=== PATIENT | female | born 1960 | race Caucasian/White ===

== ENCOUNTER 2023-06-08 17:36 | Emergency (ER) | payer MEDICARE, OTHER, SELFPAY ==
[2023-06-08 17:36] VITALS: BMI 42.3
--- NOTE | 2023-06-08 17:37 | XRR_ITS ---
PROCEDURE INFORMATION: Exam: XR Chest Exam date and time: 06/08/2023 5:49 PM Age: 63 years old Clinical indication: Pain; Chest pressure; Additional info: Dyspnea/cough TECHNIQUE: Imaging protocol: Radiologic exam of the chest. Views: 1 view. COMPARISON: No relevant prior studies available. FINDINGS: Lungs: Unremarkable. No consolidation. Pleural spaces: Unremarkable. No pleural effusion. No pneumothorax. Heart/Mediastinum: Unremarkable. No cardiomegaly. Bones/joints: Unremarkable. XR/XR chest 1V portable [id number] IMPRESSION: No acute findings.
--- NOTE | 2023-06-08 17:38 | ED_ITS ---
Documented by User: Khai Chu DO 06/09/23 07:04 HPI - Chest Pain 2 General: Chief Complaint: Chest Pain Stated Complaint: chest pain Time Seen by Provider: 06/08/23 17:37 Source: patient Mode of arrival: EMS History of Present Illness: 63-year-old female presents emergency ro om with complaint of chest discomfort that began around 4:00 today. Earlier today she noticed her blood pressure is high she ended up taking her clonidine and went down to lay down to take a nap when she woke up she felt odd did some chest discomfort numbness and tingling in her face felt a sensation of swelling in her lips. 911 was called that she was given nitro x 3 4 baby aspirin she is given Zofran and morphine in route she has no chest pain on arrival here she is mildly hyperventilating when initially seen. She denies any abdominal pain no vomiting diarrhea fever sweats chills or productive cough recently. She has no known history of coronary disease she states she has a valve that they are monitoring by echocardiogram but has not had any stress test or angiograms previously.. We do not have any old records regarding this at our facility. MD complaint: chest pain Onset (ago): hour(s) Timing of current episode: episodic Prior episodes: Yes Onset: during rest Pain location: substernal and left chest Pain radiation: back and neck Severity: moderate Quality: aching and heaviness Relieving factors: nitroglycerin Exacerbating factors: nothing Associated symptoms: Reports sense of impending doom; Deny abdominal pain, diaphoresis, dyspnea, fever(s), leg edema, nausea, palpitations, syncope or vomiting Treatment prior to arrival: aspirin, nitroglycerin and oxygen Review of Systems 2 Const: Denies: fever(s), chills or diaphoresis Card: Reports: chest pain; Denies: palpitations or syncope Resp: Denies: dyspnea GI: Denies: abdominal pain, nausea or vomiting : Denies: dysuria, urinary frequency or urinary urgency Musc: Denies: neck pain or back pain Skin/Breast: Denies: rash Physical Exam 2 Const: COMMON NORMALS: no acute distress GENERAL APPEARANCE: cooperative and comfortable ORIENTATION/CONSCIOUSNESS: Yes awake, Yes oriented to person, Yes oriented to place and Yes oriented to time HENMT: COMMON NORMALS: normocephalic, atraumatic and hearing grossly normal bilaterally HEAD & SCALP: normocephalic and atraumatic Resp: COMMON NORMALS: normal respiratory effort, No retractions, No use of accessory muscles and clear to auscultation bilaterally AUSCULTATION: clear to auscultation bilaterally Cardio: COMMON NORMALS: regular rate, regular rhythm and No murmurs present (Cardio) RATE: regular rate RHYTHM: regular rhythm GI: COMMON NORMALS: Soft to palpation and No hepatosplenomegaly present A USCULTATION: Yes normoactive bowel sounds PALPATION: Yes Soft to palpation, No Tenderness to palpation present (GI), No Guarding due to palpation present (GI) and Yes No hepatosplenomegaly present Extremity: COMMON NORMALS: normal to inspection, capillary refill normal, no clubbing, cyanosis or edema, no calf tenderness and no pedal edema Neuro: SENSORIUM/ORIENTATION: Yes oriented to person, Yes oriented to place and Yes oriented to time Skin: COMMON NORMALS: no rashes or lesions noted GENERAL SKIN EXAM: no rashes or lesions noted Course 2 Vital Signs: Vital signs: Vital Signs Temperature 98.0 F 06/08/23 17:39 Pulse Rate 57 L 06/08/23 18:54 Respiratory Rate 16 06/08/23 17:39 Blood Pressure 157/84 06/08/23 18:54 Pulse Oximetry 97 06/08/23 18:54 Oxygen Delivery Me thod Room Air 06/08/23 18:54 MDM - Chest Pain Medical Decision Making Care signed out to Dr. Dwyer at change of shift. See final notes for diagnosis and disposition. Lab Data 06/08/23 18:00 06/08/23 18:00 Radiology Impressions Chest X-Ray 06/08/23 17:37 IMPRESSION: No acute findings. Laboratory Results WBC 8.42 10^3/uL (3.29-11.43) 06/08/23 18:00 RBC 3.35 10^6/uL (3.85-5.65) L 06/08/23 18:00 Hgb 10.60 g/dL (11.27-16.99) L 06/08/23 18:00 Hct 33.3 % (36-47) L 06/08/23 18:00 MCV 99.4 fl (85-98) H 06/08/23 18:00 MCH 31.6 pg (27-33) 06/08/23 18:00 MCHC 31.8 g/dL (30-55) 06/08/23 18:00 RDW 12.9 % (12.1-15.1) 06/08/23 18:00 Plt Count 225 10^3/cmm (157-399) 06/08/23 18:00 MPV 10.1 fL (7.4-10.4) 06/08/23 18:00 Neut % (Auto) 65.4 % 06/08/23 18:00 Lymph % (Auto) 23.3 % 06/08/23 18:00 [place] % (Auto) 6.4 % 06/08/23 18:00 Eos % (Auto) 4.2 % 06/08/23 18:00 Baso % (Auto) 0.6 % 06/08/23 18:00 Neut # (Auto) 5.51 10^3/uL (1.8-7.7) 06/08/23 18:00 Lymph # (Auto) 2.0 10^3/uL (0.8-4.8) 06/08/23 18:00 [place] # (Auto) 0.5 10^3/uL (0.2-0.9) 06/08/23 18:00 Eos # (Auto) 0.4 10^3/uL (0.0-0.8) 06/08/23 18:00 Baso # (Auto) 0.1 10^3/uL (0.0-0.1) 06/08/23 18:00 Nucleated RBC % (auto) 0 % 06/08/23 18:00 Nucleated RBCs # 0.0 /100WBC 06/08/23 18:00 Sodium 138 mmol/L (136-145) 06/08/23 18:00 Potassium 4.1 mmol/L (3.5-5.1) 06/08/23 18:00 Chloride 103 mmol/L (98-107) 06/08/23 18:00 Carbon Dioxide 25 mmol/L (22-29) 06/08/23 18:00 Anion Gap 14.1 (5-19) 06/08/23 18:00 BUN 31 mg/dL (8-23) H 06/08/23 18:00 Creatinine 0.9 mg/dL (0.5-0.9) 06/08/23 18:00 GFR Calculation 62.8 mL/min (90-130) L 06/08/23 18:00 Glucose 94 mg/dL (65-115) 06/08/23 18:00 Calculated Osmolality 292 mOsm/kg (285-295) 06/08/23 18:00 Calcium 8.7 mg/dL (8.5-10.5) 06/08/23 18:00 Total Bilirubin 0.2 mg/dL (0.15-1.2) 06/08/23 18:00 AST 23 U/L (0-32) 06/08/23 18:00 ALT 47 U/L (0-33) H 06/08/23 18:00 Alkaline Phosphatase 80 U/L (35-105) 06/08/23 18:00 Troponin T Baseline 9 ng/L (0-10) 06/08/23 18:00 Troponin T 120 Minute 7.71 ng/L (0-10) 06/08/23 20:27 Delta Troponin T -1.29 ABS# (0-10) L 06/08/23 20:27 Total Protein 6.6 g/dL (6.6-8.7) 06/08/23 18:00 Albumin 4.0 g/dL (3.5-5.2) 06/08/23 18:00 Globulin 2.6 g/dL (1.3-4.6) 06/08/23 18:00 Discharge Plan Discharge Patient Disposition: Home Clinical Impression: Atypical chest pain Condition: Stable Discharge Orders: Discharge ED (Routine); Ordered 06/08/23 Ordered By: Francis Dwyer Referrals: Migue Rodríguez MD [Referring] - Discharge Diet: Advance as tolerated Discharge Activity: Resume usual activity Patient Instructions: Opioid Safety, Pain Management Activity Restrictions/Additional Instructions: Activity Restrictions/Additional Instructions: Thank you for choosing [facility] for your healthcare needs today. Please realize that you were seen in the Emergency Department and that we are providing you with an emergency medical screening exam and this may not be a complete and all inclusive of all the testing and or medical work-up that you may need to determine your ailment or severity of your illness. It is very important that you follow-up as instructed with your Primary care provider or Specialist for additional evaluation and to discuss your medical treatment plan. You may return to the Emergency Department should you have concerns or if your condition changes or worsens in any way. Coding Level of Care Code ED Clinical Pharmacy Manager for Tere Fwd Documented by User: Francis Dwyer MD 06/08/23 21:07 HPI - Chest Pain 2 General: Chief Complaint: Chest Pain Stated Complaint: chest pain Time Seen by Provider: 06/08/23 17:37 Course 2 Vital Signs: Vital signs: Vital Signs Temperature 98.0 F 06/08/23 17:39 Pulse Rate 57 L 06/08/23 18:54 Respiratory Rate 16 06/08/23 17:39 Blood Pressure 157/84 06/08/23 18:54 Pulse Oximetry 97 06/08/23 18:54 Oxygen Delivery Me thod Room Air 06/08/23 18:54 MDM - Chest Pain Lab Data I reviewed the patient's lab results. 06/08/23 18:00 06/08/23 18:00 Radiology Impressions Chest X-Ray 06/08/23 17:37 IMPRESSION: No acute findings. Laboratory Results WBC 8.42 10^3/uL (3.29-11.43) 06/08/23 18:00 RBC 3.35 10^6/uL (3.85-5.65) L 06/08/23 18:00 Hgb 10.60 g/dL (11.27-16.99) L 06/08/23 18:00 Hct 33.3 % (36-47) L 06/08/23 18:00 MCV 99.4 fl (85-98) H 06/08/23 18:00 MCH 31.6 pg (27-33) 06/08/23 18:00 MCHC 31.8 g/dL (30-55) 06/08/23 18:00 RDW 12.9 % (12.1-15.1) 06/08/23 18:00 Plt Count 225 10^3/cmm (157-399) 06/08/23 18:00 MPV 10.1 fL (7.4-10.4) 06/08/23 18:00 Neut % (Auto) 65.4 % 06/08/23 18:00 Lymph % (Auto) 23.3 % 06/08/23 18:00 [place] % (Auto) 6.4 % 06/08/23 18:00 Eos % (Auto) 4.2 % 06/08/23 18:00 Baso % (Auto) 0.6 % 06/08/23 18:00 Neut # (Auto) 5.51 10^3/uL (1.8-7.7) 06/08/23 18:00 Lymph # (Auto) 2.0 10^3/uL (0.8-4.8) 06/08/23 18:00 [place] # (Auto) 0.5 10^3/uL (0.2-0.9) 06/08/23 18:00 Eos # (Auto) 0.4 10^3/uL (0.0-0.8) 06/08/23 18:00 Baso # (Auto) 0.1 10^3/uL (0.0-0.1) 06/08/23 18:00 Nucleated RBC % (auto) 0 % 06/08/23 18:00 Nucleated RBCs # 0.0 /100WBC 06/08/23 18:00 Sodium 138 mmol/L (136-145) 06/08/23 18:00 Potassium 4.1 mmol/L (3.5-5.1) 06/08/23 18:00 Chloride 103 mmol/L (98-107) 06/08/23 18:00 Carbon Dioxide 25 mmol/L (22-29) 06/08/23 18:00 Anion Gap 14.1 (5-19) 06/08/23 18:00 BUN 31 mg/dL (8-23) H 06/08/23 18:00 Creatinine 0.9 mg/dL (0.5-0.9) 06/08/23 18:00 GFR Calculation 62.8 mL/min (90-130) L 06/08/23 18:00 Glucose 94 mg/dL (65-115) 06/08/23 18:00 Calculated Osmolality 292 mOsm/kg (285-295) 06/08/23 18:00 Calcium 8.7 mg/dL (8.5-10.5) 06/08/23 18:00 Total Bilirubin 0.2 mg/dL (0.15-1.2) 06/08/23 18:00 AST 23 U/L (0-32) 06/08/23 18:00 ALT 47 U/L (0-33) H 06/08/23 18:00 Alkaline Phosphatase 80 U/L (35-105) 06/08/23 18:00 Troponin T Baseline 9 ng/L (0-10) 06/08/23 18:00 Troponin T 120 Minute 7.71 ng/L (0-10) 06/08/23 20:27 Delta Troponin T -1.29 ABS# (0-10) L 06/08/23 20:27 Total Protein 6.6 g/dL (6.6-8.7) 06/08/23 18:00 Albumin 4.0 g/dL (3.5-5.2) 06/08/23 18:00 Globulin 2.6 g/dL (1.3-4.6) 06/08/23 18:00 All radiology interpretation(s) finalized by discharge Discharge Plan Discharge Patient Disposition: Home Clinical Impression: Atypical chest pain Condition: Stable Discharge Orders: Discharge ED (Routine); Ordered 06/08/23 Ordered By: Francis Dwyer Referrals: Migue Rodríguez MD [Referring] - Discharge Diet: Advance as tolerated Discharge Activity: Resume usual activity Patient Instructions: Opioid Safety, Pain Management Activity Restrictions/Additional Instructions: Activity Restrictions/Additional Instructions: Thank you for choosing [facility] for your healthcare needs today. Please realize that you were seen in the Emergency Department and that we are providing you with an emergency medical screening exam and this may not be a complete and all inclusive of all the testing and or medical work-up that you may need to determine your ailment or severity of your illness. It is very important that you follow-up as instructed with your Primary care provider or Specialist for additional evaluation and to discuss your medical treatment plan. You may return to the Emergency Department should you have concerns or if your condition changes or worsens in any way. Coding Level of Care Code ED Clinical Pharmacy Manager for Tere Moreno
[2023-06-08 17:39] VITALS: BP 146/77; PULSE 67; RESP 16; TEMP 36.7; O2SAT 96
--- NOTE | 2023-06-08 17:41 | ECG_ITS ---
[facility] Test Date: 2023-06-08 Pat Name: Aylin Buck Department: Room: Gender: Female Technology Recruiter: : 1960 Requested By: Khai Watkins Order Number: [id number] Dipak MD: Bunny Bateman M.D. Measurements Intervals [place] Rate: 60 P: 58 WA: 196 QRS: -8 QRSD: 94 T: 47 QT: 403 QTc: 405 Interpretive Statements SINUS RHYTHM LOW QRS VOLTAGE IN PRECORDIAL LEADS [QRS DEFLECTION < 1.0 mV IN CHEST LEADS] No previous ECG available for comparison Electronically Signed On 06-09-2023 8:16:22 RETORT CONDENSER ATTENDANT by Bunny Bateman M.D. [id number] f
[2023-06-08 18:16] LABS: Basophils # 0.1 10^3/uL (0.0-0.1); Basophils % 0.6 %; Eosinophils # 0.4 10^3/uL (0.0-0.8); Eosinophils % 4.2 %; Hematocrit 33.3 % (36-47); Lymphocytes % 23.3 %; Mean Corpuscular HGB Conc 31.8 g/dL (30-55); Mean Corpuscular Hemoglobin 31.6 pg (27-33); Mean Corpuscular Volume 99.4 fl (85-98); Mean Platelet Volume 10.1 fL (7.4-10.4); Monocytes # 0.5 10^3/uL (0.2-0.9); Monocytes % 6.4 %; Neutrophils # 5.51 10^3/uL (1.8-7.7); Neutrophils % 65.4 %; Nucleated Red Blood Cells % 0 %; Platelet Count 225 10^3/cmm (157-399); Red Blood Count 3.35 10^6/uL (3.85-5.65); Red Cell Distribution Width 12.9 % (12.1-15.1); White Blood Count 8.42 10^3/uL (3.29-11.43)
[2023-06-08 18:43] LABS: Troponin(5th) Baseline 9 ng/L (0-10)
[2023-06-08 18:48] LABS: Alanine Aminotransferase 47 U/L (0-33); Alkaline Phosphatase 80 U/L (35-105); Anion Gap 14.1 (5-19); Aspartate Amino Transferase 23 U/L (0-32); Blood Urea Nitrogen 31 mg/dL (8-23); Calcium 8.7 mg/dL (8.5-10.5); Carbon Dioxide 25 mmol/L (22-29); Chloride 103 mmol/L (98-107); Globulin 2.6 g/dL (1.3-4.6); Glomerular Filtration Rate 62.8 mL/min (90-130); Glucose 94 mg/dL (65-115); Osmolality Calculated 292 mOsm/kg (285-295); Potassium 4.1 mmol/L (3.5-5.1); Sodium 138 mmol/L (136-145); Total Bilirubin 0.2 mg/dL (0.15-1.2); Total Protein 6.6 g/dL (6.6-8.7)
[2023-06-08 18:54] VITALS: BP 157/84; PULSE 57; O2SAT 97
--- NOTE | 2023-06-08 19:53 | ECG_ITS ---
[facility] Test Date: 2023-06-08 Pat Name: Aylin Ha Department: Room: Gender: Female Front Office Secretary: : 1960 Requested By: Khai Watkins Order Number: [id number] Dipak MD: Bunny Bateman M.D. Measurements Intervals [place] Rate: 59 P: 48 CT: 190 QRS: -8 QRSD: 93 T: 42 QT: 435 QTc: 434 Interpretive Statements SINUS BRADYCARDIA LOW QRS VOLTAGE IN PRECORDIAL LEADS [QRS DEFLECTION < 1.0 mV IN CHEST LEADS] Compared to ECG 06/08/2023 17:41:03 Sinus rhythm no longer present Electronically Signed On 06-09-2023 8:17:58 MERCHANDISING EXECUTION MANAGER by Bunny Bateman M.D. [id number]
[2023-06-08 20:53] LABS: Troponin 5 2HR 7.71 ng/L (0-10)
[2023-06-08 20:58] LABS: Troponin 5 2HR Delta -1.29 ABS# (0-10)
== END 2023-06-08 21:28 | disposition home or self-care (01) ==
PROVIDERS: Family Medicine; Emergency Provider Internal Medicine; PCP Family Medicine
DX: R07.89 Other chest pain (principal)
CPT/HCPCS: 36415; 71045; 80053; 84484; 85025; 93005; 99285